=== PATIENT | male | born 1935 | race Caucasian/White ===

== ENCOUNTER 2025-03-29 11:00 | Outpatient (RCR) | payer MEDICARE, OTHER, SELFPAY ==
--- NOTE | 2025-02-22 07:13 | HP.OTEVAL_ITS ---
Patient's Visit Information Visit Information Visit Information: FLAQUITO CAMARA is a 89 year old M, referred to Occupational Therapy by TRISTEN SCOTT, with a diagnosis of bilateral LE lymphedema. Date of Evaluation: 02/21/25 Occupational Therapist: Samantha Collins OTR/Yoana, CHT Subjective Subjective: this 89 year old male was seen for OT eval with dx of bilateral LE swelling in fall of 2023. Pt states they started using water pill in and to find the right balance it has taken 6 months. pt states he did have compression socks but they were too difficult to get on. Pts arrives with dtr-in-law who states he needs to get compression socks that he can do himself as he lives alone. Lymphedema (Circumferential Measure) Mid-foot: right 26cm left 26cm Ankle: right 30cm left 30cm Lower calf: right 33cm left 33cm Largest calf: right 42cm left 40cm Below knee: right 37cm left 37cm Goals Goal: Patient will demonstrate a 20% reduction in edema by discharge: Yes Goal: Patient will demonstrate adequate knowledge of self-bandaging by the end of the first week.: Yes Goal: Patient will demonstrate adequate knowledge of self-massage by the end of the second week.: Yes Goal: Patient will demonstrate adequate knowledge of skin care and precautions by the end of the first week.: Yes Goal: Patient will demonstrate adequate knowledge of therapeutic exercises by discharge.: Yes Goal: Patient will select an appropriate compression garment and demonstrate adequate knowledge of correct donning technique, care and wearing schedule by discharge.: Yes Goal: Patient will voice understanding of need to replace compression garment every four to six months by discharge.: Yes Rehabilitation General Assessment: pt demo with stage II lymphedema of bilateral LE. pt demo need for skilled therapy services 3-6 visits to ensure pt has understanding of lymphedema life long mtg. Today therapist ed. pt and family on compression devices to assist in circulation ( 30-40mmHg). exercise that stimulate circulation. therapist has ed. him on dx and to avoid sleeping sitting up in his recliner- Therapist ed. pt every 45 min. he is to get up and walk to kitchen/bathroom or bedroom to increase his circulation. Therapist ed. pt sleeping in a bed is better than his chair.- pt receptive. Therapist ed. pt on getting compression socks and using velcro closer compression garment to assist in mtg. of limb size. Therapy will initiate getting pt a home compression pump Vaso pneumatic pump to assist pt in mtg. his LE lymphedema. pt and family agree to POC. Rehabilitation Potential: Good Anticipated Interventions Anticipated Interventions: Education re assistive Equipment, Education re Diagnosis, Education re Life-long lymphedema Management, Education re Skin Care and Precautions, Education re Self Massage Techniques, Caregiver Training and Home Program Visit Plan Frequency: Monthly Duration: 2 Months TEXT: Thank you for the opportunity to evaluate your patient. For Medicare and Medicare HMO plans, please review the plan of care and approve it. It will need to be FAXED BACK to us at [phone] for Medicare purposes. Please let me know if there are questions or concerns regarding this plan of care. Physician Signature: Date:
== END 2025-03-29 19:00 | disposition home or self-care (01) ==
LOC: OT 11:00
PROVIDERS: PCP Family Medicine
DX: I87.2 Venous insufficiency (chronic) (peripheral) (principal); I89.0 Lymphedema, not elsewhere classified
CPT/HCPCS: 97166; 97530